=== PATIENT | female | born 1990 | race Caucasian/White ===

== ENCOUNTER → 2017-12-17 12:17 | Outpatient (CLI) | payer OTHER, SELFPAY ==
[2017-12-17 12:48] LABS: Absolute Lymphocyte Count 3.26 X10^3/ul (0.83-4.51); Basophil# 0.02 X10^3/uL; Basophil% 0.3 % (0-1); Eosinophil# 0.25 X10^3/uL; Eosinophils% 3.6 % (0-5); Hematocrit 40.5 % (37-47); Hemoglobin 13.7 g/dl (12.0-15.0); Lymphocyte # 3.26 X10^3/ul (4.0); Lymphocyte % 46.6 % (19-41); Mean Corp Hgb Conc 33.8 g/gl (32-36); Mean Corpuscular Hgb 30.7 pg (27.0-32.0); Mean Corpuscular Volume 90.8 fL (81-99); Mean Platelet Vol. 9.4 fl (6.2-12.0); Monocyte# 0.42 X10^3/uL; Neutrophil # 3.04 X10^3/uL (2.7-7.7); Neutrophil % 43.4 % (47-70); Platelet Count 312 K/mm3 (150-450); RBC Distribution Width CV 13.3 % (11.6-14.6); Red Blood Count 4.46 M/mm3 (4.2-5.4)
[2017-12-17 12:52] LABS: POSITIVE COUNT NO; POSITIVE DIFFERENTIAL NO; POSITIVE MORPHOLOGY NO
[2017-12-17 13:24] LABS: Thyroid Stim Hormone (TSH) 1.12 uIU/mL (0.358-3.74)
[2017-12-19 07:06] LABS: DHEA Sulfate 264.3 ug/dL (84.8-378.0)
[2017-12-19 07:47] LABS: Testosterone Free 2.1 pg/mL (0.0-4.2)
== END ==
LOC: LAB 12:20
PROVIDERS: Family Provider Family Medicine; PCP Family Medicine; Referring Provider Obstetrics & Gynecology; Visit Provider Obstetrics & Gynecology
DX: E28.2 Polycystic ovarian syndrome (principal)
CPT/HCPCS: 36415; 82627; 84402; 84443; 85025; 82626

== ENCOUNTER → 2018-01-06 08:44 | Outpatient (CLI) | payer OTHER, SELFPAY ==
--- NOTE | 2018-01-06 08:51 | US_ITS ---
STUDY: ULTRASOUND OF THE FEMALE PELVIS - COMPLETE REASON FOR EXAM: Female, 27 years old. Abnormal uterine bleeding. History of polycystic ovary disease. LMP: December 20, 2017. TECHNIQUE: Transvaginal TECHNICAL QUALITY: Adequate. COMPARISON: None. FINDINGS: The uterus is anteverted and is in a midline position. The uterus measures 6.6 cm x 3.7 cm x 2.4 cm. Normal uterine cervix. The endometrium measures 6.0 mm in thickness, and is hyperechoic. There is no demonstrated endometrial mass. There is no demonstrated myometrial mass. I.U.D. - The patient does not have an I.U.D. The right ovary is visualized. The right ovary is enlarged and measures 5.1 cm x 3.8 cm x 2.8 cm. A dominant follicle measuring 1.3 cm x 1.5 cm x 1.3 cm is seen in the right ovary. There is no visualized right adnexal mass or complex lesion. There is normal arterial and normal venous vascularity. The left ovary is visualized. The left ovary measures 4.4 cm x 3.3 cm x 2.4 cm. There is no left ovarian cyst or ovarian mass. There is no visualized left adnexal mass or complex lesion. There is normal arterial and normal venous vascularity. There is no fluid in the cul-de-sac. The pre void volume of the bladder was 34.2 ml. Polycystic ovary disease: Yes. US/Transvaginal Non- IMPRESSION: Mildly enlarged ovaries. Dominant follicle in the right ovary. Electronically Signed: Uriel Croft MD at 9:04 EDT Tel [phone], Service support ,
== END ==
PROVIDERS: Family Provider Family Medicine; PCP Family Medicine; Referring Provider Obstetrics & Gynecology; Visit Provider Obstetrics & Gynecology
DX: N93.9 Abnormal uterine and vaginal bleeding, unspecified (principal)
CPT/HCPCS: 76830; 93976

== ENCOUNTER → 2018-03-15 09:17 | Outpatient (CLI) | payer OTHER, SELFPAY ==
[2018-01-06 10:07] VITALS: BMI 31.5
[2018-03-15 11:10] LABS: hCG Titer Quant., Serum 8 mIU/mL (<9 non-preg)
== END ==
PROVIDERS: Family Provider Family Medicine; PCP Family Medicine; Referring Provider Obstetrics & Gynecology; Visit Provider Obstetrics & Gynecology
DX: N91.2 Amenorrhea, unspecified (principal)
CPT/HCPCS: 36415; 84702

== ENCOUNTER → 2018-03-17 09:02 | Outpatient (CLI) | payer OTHER, SELFPAY ==
[2018-01-06 10:07] VITALS: BMI 31.5
[2018-03-17 09:50] LABS: hCG Titer Quant., Serum 27 mIU/mL (<9 non-preg)
== END ==
LOC: LAB 09:03
PROVIDERS: Family Provider Family Medicine; PCP Family Medicine; Referring Provider Obstetrics & Gynecology; Visit Provider Obstetrics & Gynecology
DX: N91.2 Amenorrhea, unspecified (principal)
CPT/HCPCS: 36415; 84702

== ENCOUNTER → 2018-03-19 09:25 | Outpatient (CLI) | payer OTHER, SELFPAY ==
[2018-01-06 10:07] VITALS: BMI 31.5
[2018-03-19 11:37] LABS: hCG Titer Quant., Serum 32 mIU/mL (<9 non-preg)
== END ==
LOC: LAB 09:27
PROVIDERS: Family Provider Family Medicine; PCP Family Medicine; Referring Provider Obstetrics & Gynecology; Visit Provider Obstetrics & Gynecology
DX: N93.9 Abnormal uterine and vaginal bleeding, unspecified (principal)
CPT/HCPCS: 36415; 84702

== ENCOUNTER → 2018-03-24 15:52 | Outpatient (CLI) | payer OTHER, SELFPAY ==
[2018-03-24 17:35] LABS: hCG Titer Quant., Serum 3 mIU/mL (<9 non-preg)
== END ==
PROVIDERS: Family Provider Family Medicine; PCP Family Medicine; Referring Provider Obstetrics & Gynecology; Visit Provider Obstetrics & Gynecology
DX: Z34.90 Encounter for supervision of normal pregnancy, unspecified, unspecified trimester (principal)
CPT/HCPCS: 36415; 84702

== ENCOUNTER → 2019-05-05 15:03 | Outpatient (CLI) | payer BC, SELFPAY ==
[2019-05-05 14:36] VITALS: BMI 31.5
[2019-05-05 16:22] LABS: hCG Titer Quant., Serum < 1 mIU/mL (1-3)
== END ==
PROVIDERS: Obstetrics & Gynecology; PCP Family Medicine; Referring Provider Nurse Practitioner Women's Health; Visit Provider Nurse Practitioner Women's Health
DX: N93.9 Abnormal uterine and vaginal bleeding, unspecified (principal)
CPT/HCPCS: 36415; 84702

== ENCOUNTER → 2020-05-21 | Outpatient (CLI) | payer OTHER, SELFPAY ==
[2020-05-21 13:58] VITALS: BMI 31.8
[2020-05-28 20:12] LABS: HPV APTIMA, High Risk Negative (Negative); HPV Reflexed? NOT INDICATED
== END | disposition home or self-care (01) ==
LOC: LABSPEC 16:29
PROVIDERS: PCP Family Medicine; Referring Provider Nurse Practitioner Women's Health; Visit Provider Nurse Practitioner Women's Health
DX: Z12.4 Encounter for screening for malignant neoplasm of cervix (principal)
CPT/HCPCS: 88175; G0145

== ENCOUNTER → 2020-06-16 11:55 | Outpatient (CLI) | payer OTHER, SELFPAY ==
[2020-05-21 13:58] VITALS: BMI 31.8
[2020-06-16 13:08] LABS: Hemoglobin A1c 5.5 % (3.8-5.6)
[2020-06-16 13:15] LABS: Cholesterol 191 mg/dL (200); Glucose 91 mg/dL (74-106); High Density Lipoprotein 31 mg/dL; Prolactin 19.1 ng/mL; Triglycerides 449 mg/dL
== END ==
LOC: LAB 11:57
PROVIDERS: PCP Family Medicine; Referring Provider Nurse Practitioner Women's Health; Visit Provider Nurse Practitioner Women's Health
DX: N92.6 Irregular menstruation, unspecified (principal); N97.0 Female infertility associated with anovulation; Z13.220 Encounter for screening for lipoid disorders; Z13.1 Encounter for screening for diabetes mellitus
CPT/HCPCS: 36415; 80061; 82947; 83036; 84146

== ENCOUNTER 2021-01-29 14:11 | Emergency (ER) | payer OTHER, SELFPAY ==
[2021-01-29 14:12] VITALS: BP 120/79; PULSE 83; RESP 16; TEMP 37.1; O2SAT 97; BMI 32.3
--- NOTE | 2021-01-29 14:15 | EKG12_ITS ---
Test Reason : CP Blood Pressure : / mmHG Vent. Rate : 071 BPM Atrial Rate : 071 BPM P-R Int : 162 ms QRS Dur : 098 ms QT Int : 408 ms P-R-T Axes : 027 041 014 degrees QTc Int : 443 ms Normal sinus rhythm Normal ECG Confirmed by HEMANTH REYNAGA, DANIELLE ([id number]), deputy editor in chief JYOTI NOLAND ([id number]) on 01/31/2021 8:46:16 AM Referred By: ANN MARIE/INDIA Confirmed By:DANIELLE SAXENA MD
--- NOTE | 2021-01-29 15:30 | RAD_ITS ---
History: chest pain EXAMINATION/TECHNIQUE: XR Chest 1 View: Portable COMPARISON: None FINDINGS: LINES/DEVICES: None. LUNGS: No consolidation, edema or effusion. No pneumothorax. MEDIASTINUM AND CARDIOVASCULAR STRUCTURES: Cardiac silhouette not enlarged. Central airways and mediastinal contour are unremarkable. BONES AND SOFT TISSUES: Unremarkable. RAD/Chest 1 View (Portable) IMPRESSION: No radiographic evidence of acute cardiopulmonary disease. at 1648 Reported and signed by: Miguel A Tovar MD Electronically Signed: Miguel A Tovar MD at 16:47 EST Tel , Service support ,
[2021-01-29 15:44] LABS: Absolute Lymphocyte Count 3.28 X10^3/uL (0.83-4.51); Absolute Neutrophil Count 3.8 X10^3/uL (2.0-7.7); Basophil# 0.04 X10^3/uL; Basophil% 0.5 % (0-1); Eosinophil# 0.21 X10^3/uL; Eosinophils% 2.7 % (0-5); Hematocrit 40.8 % (37-47); Hemoglobin 14.2 g/dL (12.0-15.0); Lymphocyte # 3.28 X10^3/ul (0.83-4.51); Lymphocyte % 41.6 % (19-41); Mean Corp Hgb Conc 34.8 g/dL (32-36); Mean Corpuscular Hgb 31.3 pg (27.0-32.0); Mean Corpuscular Volume 90.1 fL (81-99); Mean Platelet Vol. 9.3 fl (6.2-12.0); Monocyte# 0.47 X10^3/uL; NRBC Flagged by Analyzer 0 % (0-5); Neutrophil # 3.84 X10^3/uL (2.7-7.7); Neutrophil % 48.7 % (47-70); Platelet Count 360 K/mm3 (150-450); RBC Distribution Width CV 13.7 % (11.6-14.6); RBC Distribution Width SD 45.1 fl (35.1-43.9); Red Blood Count 4.53 M/mm3 (4.2-5.4); White Blood Count 7.9 K/mm3 (4.4-11.0)
[2021-01-29 15:58] VITALS: PULSE 68; RESP 16; O2SAT 98
[2021-01-29 16:01] VITALS: PULSE 68; RESP 16; O2SAT 98; O2SAT 99
[2021-01-29 16:06] LABS: Anion Gap 4 (5-15); BUN 12 mg/dL (7-18); BUN/Creat Ratio 14.6 RATIO (10-20); Calcium,Total 9.9 mg/dL (8.5-10.1); Chloride 108 mmol/L (98-107); Creatinine, Serum 0.82 mg/dL (0.55-1.02); EST Glomerular Filtration Rate 87 mL/min (>60); Est Glom Filt Rate - Afr Amer 106 mL/min (>60); Estimated Creatinine Clearance 77.08 ml/min; Glucose 77 mg/dL (74-106); Potassium 4.1 mmol/L (3.5-5.1); Sodium Level 139 mmol/L (136-145); Troponin-I HS 4 pg/mL (3.0-54.0)
[2021-01-29 16:11] LABS: D-Dimer Quantitative (DVT/PE) <= 0.27 FEU/ug/m (0.27-0.49)
[2021-01-29 17:07] VITALS: PULSE 67; RESP 17; O2SAT 98
--- NOTE | 2021-01-29 17:07 | EDS_ITS ---
HPI History of Present Illness Chief Complaint: Chest Pain Narrative Narrative: Patient is a 30-year-old female with no significant past medical history who presents to the ER with complaint of midsternal chest pain. She states that the pain has been more constant for the last 24 hours and is located in the center of her chest without radiation to her back neck or arm. She denies any trauma prior to the pain and she denies any previous history of DVT/PE. She does states she had Covid about 1 month ago and is concerned that she could have developed a blood clot or chest/heart issues secondary to this and therefore presents for evaluation. PFSH PFSH Home Medications albuterol sulfate 90 mcg/actuation aerosol inhaler 2 puff INHALATION Q6H PRN 05/21/20 [History Last Taken Unknown] melatonin 3 mg capsule 10 mg PO HS PRN 05/21/20 [History Last Taken Unknown] Allergy/AdvReac Type Severity Reaction Status Date / Time No Known Allergies Allergy Verified 01/29/21 14:14 Surgical History History of placement of ear tubes Social History (Updated 05/21/20 @ 14:22 by Lashawn Paez NP, [employer]) Smoking Status: Light Smoker (<10/day) alcohol intake: current details: social substance use type: does not use caffeine: Yes what type of physical activity do you participate in: none seatbelt use: always do you feel safe at home: Yes additional social history: Cristela Stuart at [employer] Patient works at [employer] ED Constitutional Constitutional ED: Denies chills or fever(s) ENT ENT ED: Denies sore throat Cardiovascular Cardiovascular: Reports chest pain; Denies palpitations or racing heartbeat Respiratory/Chest Respiratory/Chest: Denies cough or dyspnea Gastrointestinal Gastrointestinal: Denies abdominal pain, diarrhea, nausea or vomiting Genitourinary Genitourinary ED: Denies dysuria Musculoskeletal Musculoskeletal: Denies myalgias Integumentary Denies rash Neurologic Neurologic: Denies headache(s) Hematologic/Lymphatic Hematologic/Lymphatic: Denies easy bleeding or easy bruising EXAM Physical Exam Const Vital Signs: 01/29/21 14:12 01/29/21 15:58 01/29/21 16:01 Temperature 98.7 F Temperature Source Temporal Pulse Rate 83 68 68 Respiratory Rate 16 16 16 Respiratory Effort Normal Blood Pressure 120/79 Blood Pressure Mean 92 Pulse Ox 97 98 98 Oxygen Delivery Method Room Air Room Air Room Air 01/29/21 17:07 Temperature Temperature Source Pulse Rate 67 Respiratory Rate 17 Respiratory Effort Blood Pressure Blood Pressure Mean Pulse Ox 98 Oxygen Delivery Method Room Air Positive well nourished and well developed General Appearance ED: well developed HEENT Reports moist mucous membranes Eyes PERRL and EOMs intact bilaterally Neck supple Chest Wall Chest Narrative: There is reproducible midsternal chest wall pain with palpation but no bony deformity or crepitance Resp normal respiratory effort and clear to auscultation bilaterally Cardio regular rate and regular rhythm Rate: other Other Details: Radial pulses are plus 2 out of 4 bilaterally are equal and symmetric GI normal to inspection, nondistended, normoactive bowel sounds, non-tender, non- distended and no masses GI Narrative: No voluntary guarding or rigidity no pulsatile mass Auscultation: normoactive bowel sounds Palpation: soft Extremity normal to inspection Extremity Narrative: No asymmetric edema no pitting edema negative Homans' sign bilaterally Neuro oriented x3 and CN's II-XII intact bilaterally Sensorium / Orientation: alert Motor Exam: strength 5/5 throughout Psych mental status grossly normal Skin no rashes or lesions noted MDM MDM MDM Narrative Medical decision making narrative: Patient presented the ER with stable vitals and is low risk for coronary artery disease as well as DVT/PE. However with her symptoms and recent Covid diagnosis I did elect to perform a basic cardiac work- up. Chest x-ray revealed no lung pathology troponin is normal and D-dimer is also normal. Therefore at this time she is low risk for CAD has a normal work- up and therefore I do not feel there is need for placement and she is safe for discharge. Lab Data Attestation: I reviewed the patient's lab results. Labs: Laboratory Results - last 24 hr 01/29/21 01/29/21 01/29/21 15:30 15:30 15:30 WBC 7.9 RBC 4.53 Hgb 14.2 Hct 40.8 MCV 90.1 MCH 31.3 MCHC 34.8 RDW Std Deviation 45.1 H RDW Coeff of Mauro 13.7 Plt Count 360 MPV 9.3 Immature Gran % (Auto) 0.500 Neut % (Auto) 48.7 Lymph % (Auto) 41.6 H Refug[place] % (Auto) 6.0 Eos % (Auto) 2.7 Baso % (Auto) 0.5 Absolute Neuts (auto) 3.8 Absolute Lymphs (auto) 3.28 Nucleated RBC % 0 D-Dimer Quant (PE/DVT) <= 0.27 Sodium 139 Potassium 4.1 Chloride 108 H Carbon Dioxide 27.0 Anion Gap 4 L BUN 12 Creatinine 0.82 Estim Creat Clear Calc 77.08 Est GFR (MDRD) Af Amer 106 Est GFR (MDRD) Non-Af 87 BUN/Creatinine Ratio 14.6 Glucose 77 Calcium 9.9 Troponin I High Sens 4 Radiography Diagnostic Testing: Clinical Impression(s) from Imaging Studies Chest X-Ray 01/29/21 15:30 IMPRESSION: No radiographic evidence of acute cardiopulmonary disease. at 1648 Reported and signed by: Miguel A Tovar MD Electronically Signed: Miguel A Tovar MD at 16:47 EST Tel , Service support , Discharge Plan Triage Chief Complaint: Chest Pain Other Complaint: Shortness of Breath ED Provider: Manny Maharaj Dx/Rx/DC Orders Clinical Impression: Acute nonspecific chest pain with low risk of coronary artery disease Instructions: ED Chest Pain [facility] Ch Prescriptions: No Action melatonin 3 mg capsule 10 mg PO HS PRN (Reason: Insomnia) RF: 0 albuterol sulfate 90 mcg/actuation HFA aerosol inhaler 2 puff INHALATION Q6H PRNRF: 0 Primary Care Provider: Nikolay Anthony Referrals: Nikolay Anthony DO [Primary Care Provider] - Disposition Disposition: Home, Self Care
[2021-01-29 17:26] VITALS: PULSE 79; RESP 16; O2SAT 98
== END 2021-01-29 17:27 | disposition home or self-care (01) ==
PROVIDERS: Emergency Provider Emergency Medicine; PCP Family Medicine
DX: R07.89 Other chest pain (principal); R06.02 Shortness of breath; F17.200 Nicotine dependence, unspecified, uncomplicated; Z79.899 Other long term (current) drug therapy; Z86.16 Personal history of COVID-19
CPT/HCPCS: 71045; 80048; 84484; 85025; 85379; 93005; 99284; A4216

== ENCOUNTER → 2022-04-25 | Outpatient (CLI) | payer OTHER, SELFPAY ==
[2022-05-01 19:09] LABS: HPV APTIMA, High Risk Negative (Negative)
== END | disposition home or self-care (01) ==
PROVIDERS: PCP Family Medicine; Referring Provider Obstetrics & Gynecology; Visit Provider Obstetrics & Gynecology
DX: Z12.4 Encounter for screening for malignant neoplasm of cervix (principal)
CPT/HCPCS: 87624; 88175; G0145

== ENCOUNTER 2022-05-02 15:10 | Outpatient (CLI) | payer OTHER, SELFPAY ==
[2022-05-02 15:44] LABS: Absolute Lymphocyte Count 3.27 X10^3/uL (0.83-4.51); Absolute Neutrophil Count 4.8 X10^3/uL (2.0-7.7); Basophil# 0.03 X10^3/uL; Basophil% 0.3 % (0-1); Eosinophil# 0.14 X10^3/uL; Eosinophils% 1.6 % (0-5); Hematocrit 41.1 % (37-47); Hemoglobin 14.2 g/dL (12.0-15.0); Lymphocyte # 3.27 X10^3/ul (0.83-4.51); Lymphocyte % 37.5 % (19-41); Mean Corp Hgb Conc 34.5 g/dL (32-36); Mean Corpuscular Hgb 31.9 pg (27.0-32.0); Mean Corpuscular Volume 92.4 fL (81-99); Mean Platelet Vol. 9.3 fl (6.2-12.0); Monocyte# 0.44 X10^3/uL; NRBC Flagged by Analyzer 0 % (0-5); Neutrophil # 4.82 X10^3/uL (2.7-7.7); Neutrophil % 55.4 % (47-70); Platelet Count 333 K/mm3 (150-450); RBC Distribution Width CV 13.6 % (11.6-14.6); RBC Distribution Width SD 46.7 fl (35.1-43.9); Red Blood Count 4.45 M/mm3 (4.2-5.4); White Blood Count 8.7 K/mm3 (4.4-11.0)
[2022-05-02 16:29] LABS: AST(SGOT) 36 U/L (15-37); Alanine Aminotransfer ALT/SGPT 40 U/L (13-56); Albumin, Serum 4.2 g/dL (3.2-5.0); Alkaline Phosphatase 97 U/L (45-117); Anion Gap 7 (5-15); BUN 11 mg/dL (7-18); BUN/Creat Ratio 11.8 RATIO (10-20); Chloride 106 mmol/L (98-107); Creatinine, Serum 0.93 mg/dL (0.55-1.02); EST Glomerular Filtration Rate 75 mL/min (>60); Est Glom Filt Rate - Afr Amer 91 mL/min (>60); Globulin 4.1 g/dL (2.2-4.2); Glucose 134 mg/dL (74-106); Potassium 3.5 mmol/L (3.5-5.1); Protein, Total 8.3 g/dL (6.4-8.2); Sodium Level 140 mmol/L (136-145)
== END 2022-05-02 23:59 | disposition home or self-care (01) ==
LOC: LAB 15:11
PROVIDERS: PCP Family Medicine; Referring Provider Obstetrics & Gynecology; Visit Provider Obstetrics & Gynecology
DX: E66.9 Obesity, unspecified (principal); Z68.31 Body mass index [BMI] 31.0-31.9, adult
CPT/HCPCS: 36415; 80053; 85025